=== PATIENT | male | born 1975 | race Caucasian/White ===

== ENCOUNTER 2017-11-11 16:59 | Emergency (ER) | payer OTHER ==
[~2017-11-11] VITALS: Ht 182.8 cm; Wt 113.4 kg
[2017-11-11] MEDS ORDERED: BENADRYL25 M2 PO (17:16)
[2017-11-11] MEDS ORDERED: ANTIFUNGAL C14.18 GM T (17:16)
[2017-11-11] MEDS ORDERED: PREDNISONE20 M1 PO (17:16)
== END 2017-11-11 17:24 | disposition home or self-care (01) ==
LOC: ED 16:59
DX: L25.9 Unspecified contact dermatitis, unspecified cause (principal); B35.3 Tinea pedis

== ENCOUNTER → 2025-02-11 | Outpatient (CLI) | payer OTHER ==
[~2025-02-11] MED LIST: ANTIFUNGAL C14.18 GM T; BENADRYL25 M2 PO; PREDNISONE20 M1 PO
== END | disposition home or self-care (01) ==
LOC: MRI 15:13
PROVIDERS: ATTEND Chiropractor
DX: M47.816 Spondylosis without myelopathy or radiculopathy, lumbar region (principal); M51.362 Other intervertebral disc degeneration, lumbar region with discogenic back pain and lower extremity pain; M48.07 Spinal stenosis, lumbosacral region